=== PATIENT | male | born 1930 | race Caucasian/White ===

== ENCOUNTER 2019-08-30 08:31 | Emergency (ER) | payer MEDICARE, BC ==
[~2019-08-30] VITALS: Ht 167.6 cm; Wt 75.0 kg
[2019-08-30 09:57] LABS: BASOPHILS % (AUTO) 0.7 % (0-1); EOSINOPHILS # (AUTO) 0.1 X10'3 (0-0.9); EOSINOPHILS % (AUTO) 2.4 % (0-6); HEMATOCRIT 42.1 % (42.0-52.0); HEMOGLOBIN 14.5 g/dl (14.0-17.9); LYMPHOCYTES # (AUTO) 1.5 X10'3 (1.1-4.8); LYMPHOCYTES % (AUTO) 26.2 % (21-51); MEAN CORPUSCULAR HEMOGLOBIN 32.9 PG (27.0-31.0); MEAN CORPUSCULAR HGB CONC 34.5 g/dL (33.0-36.5); MEAN CORPUSCULAR VOLUME 95.4 FL (78-98); MEAN PLATELET VOLUME 7.5 FL (7.4-10.4); MONOCYTES # (AUTO) 0.7 X10'3 (0-0.9); MONOCYTES % (AUTO) 11.8 % (2-12); NEUTROPHILS # (AUTO) 3.3 X10'3 (1.8-7.7); NEUTROPHILS % (AUTO) 58.9 % (42-75); PLATELET COUNT 194 X10'3 (140-440); RED BLOOD COUNT 4.41 X10'6 (4.70-6.10); RED CELL DISTRIBUTION WIDTH 13.6 % (11.5-14.5); WHITE BLOOD COUNT 5.6 X10'3 (4.5-11.0)
[2019-08-30 10:05] LABS: ALBUMIN 3.7 G/DL (3.4-5.0); ANION GAP 5 (8-16); BLOOD UREA NITROGEN 15 MG/DL (7-18); BUN/CREATININE RATIO 14.2 (5.4-32.0); CALCIUM 8.6 MG/DL (8.5-10.1); CHLORIDE 108 MMOL/L (99-107); CREATININE 1.06 MG/DL (0.60-1.10); GLUCOSE 109 MG/DL (70-104); POTASSIUM 4.4 MMOL/L (3.5-5.1); SODIUM 141 MMOL/L (135-145); TOTAL CARBON DIOXIDE 27.8 MMOL/L (24-32); eGFR 66 ML/MIN
--- NOTE | 2019-08-30 10:55 | NUR ---
Pt became confused and aggitated. Pt was asking for his . Pt refused to allow the [place] Virus swab to be collected. Left the room to talk with the provider, Dr. Pedraza and returned to the room to find the patient eloped through the ambulance bay doors and was wandering the parking lot looking for his spouse. Located the patient near the ED entrance and assisted him to locate his spouse in the car in the parking lot. Spoke with the spouse at length regarding the need to complete the COVID-19 testing and she reports she is unwilling to talk him into having the test. She verbalized that she believes his symptoms are due to Bronchitis and not COVID-19. She requested a prescription for his congestion and explained to her that the ED provider does not feel prescriptions are indicated. Pt's spouse encouraged to call the PMD to discuss further management of his symptoms.
[2019-08-30 11:16] VITALS: BP 142/74
== END 2019-08-30 11:01 | disposition home or self-care (01) ==
LOC: ER 08:32
DX: R05 Cough (principal); R06.02 Shortness of breath; Z72.89 Other problems related to lifestyle; Z88.0 Allergy status to penicillin; Z20.828 Contact with and (suspected) exposure to other viral communicable diseases
CPT/HCPCS: 36415; 71045; 80048; 85025; 93005; 99285; U0003